=== PATIENT | female | born 1990 | race Caucasian/White ===

== ENCOUNTER 2016-06-30 18:14 | Emergency (ER) | payer OTHER ==
[2016-06-30] MEDS ORDERED: ACETAMINOPHEN 325 MG TABLET PO ONE (18:53)
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
[2016-06-30 20:14] VITALS: BP 112/74
== END 2016-06-30 20:00 | disposition home or self-care (01) ==
LOC: ER 18:14
DX: R51 Headache (principal); V87.7XXA Person injured in collision between other specified motor vehicles (traffic), initial encounter; F17.200 Nicotine dependence, unspecified, uncomplicated
CPT/HCPCS: 70360; 99284